=== PATIENT | female | born 2000 | race Caucasian/White ===

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

== ENCOUNTER 2022-04-30 10:55 | Emergency (ER) | payer MEDICAID ==
[~2022-04-30] VITALS: Ht 157.5 cm; Wt 88.9 kg
[2022-04-30] MEDS ORDERED: METH750T22 PO (11:33)
[2022-04-30] MEDS ORDERED: IBUP800T27 PO (11:33)
[2022-04-30 11:42] VITALS: BP 143/85
[2022-05-01] MEDS ORDERED: IBU600T PO (16:57)
== END 2022-04-30 11:51 | disposition home or self-care (01) ==
LOC: ER 10:55
DX: G56.02 Carpal tunnel syndrome, left upper limb (principal); Z79.1 Long term (current) use of non-steroidal anti-inflammatories (NSAID); Z79.899 Other long term (current) drug therapy
CPT/HCPCS: 29125

== ENCOUNTER 2022-05-01 16:04 | Emergency (ER) | payer MEDICAID ==
[~2022-05-01] VITALS: Ht 157.5 cm; Wt 88.9 kg
[~2022-05-01 16:04] MED LIST: IBUP800T27 PO; METH750T22 PO
[2022-05-01] MEDS ORDERED: IBU600T PO (16:57)
[2022-05-01 18:38] VITALS: BP 112/73
== END 2022-05-01 18:39 | disposition home or self-care (01) ==
LOC: ER 16:04
DX: S66.912A Strain of unspecified muscle, fascia and tendon at wrist and hand level, left hand, initial encounter (principal); G56.02 Carpal tunnel syndrome, left upper limb; Z79.1 Long term (current) use of non-steroidal anti-inflammatories (NSAID); Z79.899 Other long term (current) drug therapy; X58.XXXA Exposure to other specified factors, initial encounter; Y93.89 Activity, other specified; Y92.89 Other specified places as the place of occurrence of the external cause; Y99.8 Other external cause status
CPT/HCPCS: 73110

== ENCOUNTER 2022-05-13 18:30 | Emergency (ER) | payer MEDICAID, OTHER ==
[~2022-05-13] VITALS: Ht 157.5 cm; Wt 89.4 kg
[~2022-05-13 18:30] MED LIST changes: +IBU600T PO
[2022-05-13 19:00] VITALS: BP 112/63
== END 2022-05-13 23:42 | disposition home or self-care (01) ==
LOC: ER 18:30
DX: S16.1XXA Strain of muscle, fascia and tendon at neck level, initial encounter (principal); R42 Dizziness and giddiness; V43.52XA Car driver injured in collision with other type car in traffic accident, initial encounter; Y93.89 Activity, other specified; Y92.89 Other specified places as the place of occurrence of the external cause; Y99.8 Other external cause status
CPT/HCPCS: 70450; 71250; 72125; 74176

== ENCOUNTER 2022-05-16 11:41 | Emergency (ER) | payer MEDICAID, OTHER ==
[~2022-05-16] VITALS: Ht 157.5 cm; Wt 89.4 kg
[2022-05-16] MEDS ORDERED: HYDROcodone-ACET 5/325MG TAB PO ONE (12:15)
[2022-05-16] MEDS ORDERED: diphenhdrAMINE HCL 50 MG/1 ML VL IV ONE (14:00)
[2022-05-16] MEDS ORDERED: LACTATED RINGER'S 1,000 ML IV ONE (14:00)
[2022-05-16] MEDS ORDERED: MAGNESIUM SULFATE 1GM/100ML 100 ML IV ONE (14:00)
[2022-05-16] MEDS ORDERED: KETOROLAC TROMETH 30 MG/ML 1ML VIAL IV ONE (14:00)
[2022-05-16] MEDS ORDERED: DexAMETHasone SOD PHOS 10MG/1ML VIAL INJ IV ONE (14:00)
[2022-05-16 14:50] VITALS: BP 145/79
== END 2022-05-16 15:00 | disposition home or self-care (01) ==
LOC: ER 11:41
DX: F07.81 Postconcussional syndrome (principal); Z79.1 Long term (current) use of non-steroidal anti-inflammatories (NSAID); Z79.899 Other long term (current) drug therapy
CPT/HCPCS: 81025; 93005; 96374; 99284; J1100; J1200; J1885

== ENCOUNTER 2022-05-21 15:20 | Emergency (ER) | payer MEDICAID, OTHER ==
[~2022-05-21] VITALS: Ht 157.5 cm; Wt 88.0 kg
[2022-05-21] MEDS ORDERED: MECL25CH38 PO (15:44)
[2022-05-21] MEDS ORDERED: KETOROLAC TROMETH 60MG/2ML VIAL IM ONE (15:45)
[2022-05-21] MEDS ORDERED: AMOX500T86 PO (16:31)
[2022-05-21 17:06] VITALS: BP 146/80
== END 2022-05-21 17:00 | disposition home or self-care (01) ==
LOC: ER 15:20
DX: R51.9 Headache, unspecified (principal); R42 Dizziness and giddiness; J32.9 Chronic sinusitis, unspecified; Z79.2 Long term (current) use of antibiotics; Z79.1 Long term (current) use of non-steroidal anti-inflammatories (NSAID); Z79.899 Other long term (current) drug therapy
CPT/HCPCS: 70450; 82962; 96372; 99284; J1885

== ENCOUNTER 2022-09-03 17:05 | Emergency (ER) | payer MEDICAID, OTHER ==
[~2022-09-03] VITALS: Ht 157.5 cm; Wt 84.7 kg
[~2022-09-03 17:05] MED LIST changes: +AMOX500T86 PO; +MECL25CH38 PO
[2022-09-03] MEDS ORDERED: ALBUTEROL SULF 2.5 MG/0.5ML(0.5%) NEB SOLN NEB ONE (20:45)
[2022-09-03] MEDS ORDERED: IPRATROPIUM BROM 0.5 MG/2.5ML INH SOL NEB ONE (20:45)
[2022-09-03 21:01] VITALS: BP 92/65
[2022-09-03] MEDS ORDERED: ALBUAER3 IN (22:32)
[2022-09-03] MEDS ORDERED: PRED20TA2 PO (22:32)
== END 2022-09-03 22:45 | disposition home or self-care (01) ==
LOC: ER 17:05
DX: J06.9 Acute upper respiratory infection, unspecified (principal); Z20.822 Contact with and (suspected) exposure to COVID-19
CPT/HCPCS: 36415; 71045; 87426; 87804; 94640; 99284; J7644

== ENCOUNTER 2022-11-16 11:28 | Emergency (ER) | payer MEDICAID ==
[~2022-11-16] VITALS: Ht 157.5 cm; Wt 86.0 kg
[~2022-11-16 11:28] MED LIST changes: +ALBUAER3 IN; +PRED20TA2 PO
[2022-11-16 13:17] VITALS: BP 116/83
[2022-11-16 14:17] LABS: Urine Bacteria MOD /hpf (None Seen); Urine Blood Negative /uL (Negative); Urine Specific Gravity 1.021 (1.001-1.035); Urine WBC 103 /hpf (0 - 5)
[2022-11-16] MEDS ORDERED: ACETAMINOPHEN 500 MG TAB PO ONE (14:30)
[2022-11-16] MEDS ORDERED: IBUP800T26 PO (14:49)
[2022-11-16] MEDS ORDERED: LEVO500T31 PO (14:49)
[2022-11-19] MEDS ORDERED: NITR-87 PO (17:36)
== END 2022-11-16 14:58 | disposition home or self-care (01) ==
LOC: ER 11:28
DX: N12 Tubulo-interstitial nephritis, not specified as acute or chronic (principal); Z79.899 Other long term (current) drug therapy
CPT/HCPCS: 81001

== ENCOUNTER 2022-12-29 13:02 | Emergency (ER) | payer MEDICAID ==
[~2022-12-29] VITALS: Ht 157.5 cm; Wt 86.8 kg
[2022-12-29 13:02] VITALS: BP 145/95
[~2022-12-29 13:02] MED LIST changes: +IBUP800T26 PO; +LEVO500T31 PO; +NITR-87 PO
[2022-12-29 13:39] LABS: Basophils # (auto) 0 10 ^3/uL (0-0.2); Basophils % (auto) 0.2 % (0.0-2.0); Eosinophils # (auto) 0 10 ^3/uL (0-0.8); Eosinophils % (auto) 0.4 % (0.0-7.0); Hematocrit 45.4 % (36.0-46.0); Hemoglobin 15.3 g/dL (12.2-16.2); Lymphocytes # (auto) 1.1 10 ^3/uL (0.4-5.4); Lymphocytes % (auto) 12.4 % (10.0-50.0); Mean Corpuscular Hemoglobin 30.4 pg (28.0-32.0); Mean Corpuscular Hgb Conc. 33.7 g/dL (32.0-36.0); Mean Corpuscular Volume 90.2 fL (80.0-100.0); Monocytes % (auto) 10.5 % (0.0-12.0); Neutrophils % (auto) 76.5 % (37.0-80.0); Nucleated Red Blood Cells % 0.1 %; Red Blood Cells 5.03 10^6/uL (4.0-5.20); White Blood Cell 9.2 10^3/uL (4.4-10.8)
[2022-12-29 14:22] LABS: BUN/Creatinine Ratio 12.4; Potassium 4.5 mmol/L (3.5-5.1)
[2022-12-29 14:23] LABS: Albumin 3.6 g/dL (3.4-5.0); Bilirubin, Total 0.6 mg/dL (0.2-1.0)
[2022-12-29 14:25] LABS: Calcium 8.8 mg/dL (8.5-10.1)
[2022-12-29 14:26] LABS: Total Protein 7.4 g/dL (6.4-8.2)
[2022-12-29] MEDS ORDERED: PENICILLIN G BENZ 1200000 UNITS/2 ML SYRG IM ONE (15:45)
== END 2022-12-29 17:13 | disposition home or self-care (01) ==
LOC: ER 13:02
DX: J02.0 Streptococcal pharyngitis (principal); R07.89 Other chest pain; R11.2 Nausea with vomiting, unspecified; R10.9 Unspecified abdominal pain; Z79.1 Long term (current) use of non-steroidal anti-inflammatories (NSAID); Z79.2 Long term (current) use of antibiotics; Z79.899 Other long term (current) drug therapy
CPT/HCPCS: 36415; 71045; 80053; 84484; 85025; 85379; 96372; 99284; J0561

== ENCOUNTER 2023-06-02 10:33 | Emergency (ER) | payer MEDICAID, OTHER ==
[~2023-06-02] VITALS: Ht 160 cm; Wt 89.6 kg
[~2023-06-02 10:33] MED LIST changes: +IBUP-1455 PO; +IBUP-1456 PO; -IBUP800T26 PO; -IBUP800T27 PO; +METH-1182 PO; -METH750T22 PO
[2023-06-02 12:14] VITALS: BP 137/88
[2023-06-02 13:05] LABS: Urine Bacteria FEW /hpf (None Seen); Urine Blood Negative /uL (Negative); Urine Mucus FEW (None Seen); Urine Specific Gravity 1.028 (1.001-1.035); Urine WBC 7 /hpf (0 - 5)
[2023-06-02] MEDS ORDERED: IBUP1TAB5 PO (13:56)
[2023-06-02] MEDS ORDERED: KETOROLAC TROMETH 30 MG/ML 1ML VIAL IM ONE (14:00)
== END 2023-06-02 14:18 | disposition home or self-care (01) ==
LOC: ER 10:33
DX: S30.0XXA Contusion of lower back and pelvis, initial encounter (principal); S20.212A Contusion of left front wall of thorax, initial encounter; M25.512 Pain in left shoulder; X58.XXXA Exposure to other specified factors, initial encounter; Y93.89 Activity, other specified; Y92.89 Other specified places as the place of occurrence of the external cause; Y99.8 Other external cause status
CPT/HCPCS: 71101; 72070; 72100; 73030; 81001; 81025; 96372; 99284; J1885

== ENCOUNTER 2025-10-28 14:33 | Emergency (ER) | payer OTHER ==
[~2025-10-28] VITALS: Ht 157.5 cm; Wt 105.4 kg
[~2025-10-28 14:33] MED LIST changes: +IBUP1TAB5 PO
--- NOTE | 2025-10-28 16:50 | ED.PDOC ---
Musculoskeletal HPI Comments This is a 25 year old female presenting to the ED with chief complaint of left ankle pain. Patient reports that while at a parade marching yesterday, she had accidentally tripped on a pinecone and fell, rolling her left ankle. Patient relays that she is now unable to bear weight on her left foot due to the pain and there is increased swelling to the left ankle. Patient denies any numbness, weakness, tingling, or further injury. Chief Complaint: Lower Extremity Time Seen by MD: 16:50 Primary Care Provider: AUDELIA Reviewed Notes: Nurses Notes, Medications, Allergies Allergies: Coded Allergies: NO KNOWN ALLERGIES (Unverified , 10/25/13) Home Meds Active Scripts Ibuprofen Micronized (Ibuprofen) 600 Mg Tab, 600 MG PO Q8HPRN PRN, #30 TAB 0 Refills Prov:SUKUMAR OGDEN [employer] 06/02/23 Nitrofurantoin Monohydrate Mac (Macrobid) 100 Mg Cap, 100 MG PO BID for 5 Days, #10 CAP Prov:MARION AMAYA MD 11/19/22 Ibuprofen Micronized (Ibuprofen) 800 Mg Tab, 800 MG PO TID, #20 TAB Prov:TEDDY CHEUNG PAC 11/16/22 Levofloxacin (Levaquin) 500 Mg Tab, 500 MG PO DAILY for 10 Days, #10 TAB Prov:TEDDY CHEUNG PAC 11/16/22 Albuterol Sulfate (VENTOLIN MDI) 90 Mcg Ih, 90 MCG IN PRN PRN, #1 INH 0 Refills 2 to 4 inhalations every 20 minutes for 3 doses Prov:LAINEY MEJIA 09/03/22 Prednisone (Prednisone) 20 Mg Tab, 20 MG PO BID for 5 Days, #10 TAB 0 Refills Prov:LAINEY MEJIA 09/03/22 Amoxicillin & Pot Clavulanate (Augmentin) 500 Mg Tab, 1 TAB PO BID for 10 Days, #20 TAB Prov:MARION AMAYA MD 05/21/22 Meclizine HCl (Meclizine) 25 Mg Chw, 25 MG PO DAILY for 5 Days, #5 CHW Prov:MARION AMAYA MD 05/21/22 Ibuprofen Micronized (MOTRIN TABLET) 600 Mg Tb, 600 MG PO TID PRN for 5 Days, #15 TAB *Black box warning-NSAIDS can increase risk of NC & hypertension, GI irritation, ulceration, bleed, perferation. Do not use post cardiac surgery. Use short duration/lowest effective dose. Prov:MARION AMAYA MD 05/01/22 Methocarbamol (Methocarbamol) 750 Mg Tab, 750 MG PO QHSP PRN, #20 TAB Prov:IRIS KINGHT 04/30/22 Ibuprofen (Ibuprofen) 800 Mg Tab, 800 MG PO TID PRN, #30 TAB Prov:IRIS KNIGHT 04/30/22 Information Source: Patient Mode of Arrival: Ambulatory Location: Left Extremity Location: Ankle Timing: Hours Prehospital treatment: None Severity: Moderate Able to Move Extremity: No Bear Weight: No Pain: Moderate Mechanism: Twisting Circumstances: Fall Onset of Symptoms: After Trauma Symptoms: Swelling, Pain DVT Risk Factors: NONE Associated signs and symptoms: Ankle pain Past Medical History PAST MEDICAL HISTORY: Denies Surgical History: Denies all surgeries 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 Family History Family History: Reviewed,noncontributory to illness Social History Smoker: Non-Smoker Alcohol: Denies ETOH Use Drugs: Denies Drug Use Lives In: Home Constitutional: denies: chills, diaphoresis, fatigue, fever, malaise, sweats, weakness, others EENTM: denies: blurred vision, double vision, ear bleeding, ear discharge, ear drainage, ear pain, ear ringing, eye pain, eye redness, hearing loss, mouth pain, mouth swelling, nasal discharge, nose bleeding, nose congestion, nose pain, photophobia, tearing, throat pain, throat swelling, voice changes, others Respiratory: denies: cough, hemoptysis, orthopnea, SOB at rest, shortness of breath, SOB with excertion, stridor, wheezing, others Cardiovascular: denies: chest pain, dizzy spells, diaphoresis, Dyspnea on exertion, edema, irregular heart beat, left arm pain, lightheadedness, palpitations, PND, syncope, others Gastrointestinal: denies: abdomen distended, abdominal pain, blood streaked bowels, constipated, diarrhea, dysphagia, difficulty swallowing, hematemesis, melena, nausea, poor appetite, poor fluid intake, rectal bleeding, rectal pain, vomiting, others Genitourinary: denies: abnormal vagina bleeding, burning, dyspareunia, dysuria, flank pain, frequency, hematuria, incontinence, pain, , vagina discharge, urgency, others Neurological: denies: dizziness, fainting, headache, left sided numbness, left sided weakness, numbness, paresthesia, pre-existing deficit, right sided numbness, right sided weakness, seizure, speech problems, tingling, tremors, weakness, others Musculoskeletal: reports: others (Left ankle pain); denies: back pain, gout, joint pain, joint swelling, muscle pain, muscle stiffness, neck pain Integumetry: denies: bruises, change in color, change in hair/nails, dryness, laceration, lesions, lumps, rash, wounds, others Allergic/Immunocompromised: denies: Difficulty Healing, Frequent Infections, Hives, Itching, others Hematologic/Lymphatic: denies: anemia, blood clots, easy bleeding, easy bruising, swollen glands, others Endocrine: denies: excessive hunger, excessive sweating, excessive thirst, excessive urination, flushing, intolerance to cold, intolerance to heat, unexplained weight gain, unexplained weight loss, others Psychiatric: denies: anxiety, bipolar disorder, depression, hopeless, panic disorder, schizophrenia, sleepless, suicidal, others All Other Systems: Reviewed and Negative Physical Exam General Appearance: No Apparent Distress, Normal HEENT: Normal ENT Inspection, Pharynx Normal, TMs Normal Neck: Full Range of Motion, Non-Tender, Normal, Normal Inspection Respiratory: Chest Non-Tender, Lungs Clear, No Accessory Muscle Use, No Respiratory Distress, Normal Breath Sounds Cardiovascular: No Edema, No JVD, No Murmur, No Gallop, Normal Peripheral Pulses, Regular Rate/Rhythm Breast Exam: Deferred Gastrointestinal: No Organomegaly, Non Tender, No Pulsatile Mass, Normal Bowel Sounds, Soft Genitalia: Deferred Pelvic: Deferred Rectal: Deferred Extremities: No calf tenderness, Normal capillary refill, Normal inspection, Normal range of motion, Non-tender, No pedal edema Musculoskeletal : Location: Left Extremity Location: Ankle Apperance: Tenderness Neurologic: Alert, internist II-XII nml as Tested, No Motor Deficits, Normal Affect, Normal Mood, No Sensory Deficits Cerebellar Function: Normal Reflexes: Normal Skin: Dry, Normal Color, Warm Lymphatic: No Adenopathy Was a procedure done? Was a procedure done?: No Differential Diagnosis EXT Differential Diagnosis: Fracture, Sprain, Dislocation, Contusion, Strain X-Ray, Labs, Meds, VS Vital Signs Date Time Temp Pulse Resp B/P (MAP) Pulse Ox O2 Delivery O2 Flow Rate FiO2 10/28/25 18:01 78 18 114/63 (80) 97 10/28/25 14:34 97.3 91 15 152/93 99 97.3 [place] [id number] Ph: [phone] DIAGNOSTIC IMAGING Diagnostic Imaging Report : [id number] Signed PATIENT: HANSA UBSTOS ACCT: [id number] UNIT: [id number] : 2000 LOC: ER ROOM / BED: / AGE / SEX: 25 / F ADM STATUS: REG ER SERVICE [id number] ORDERING PHYSICIAN: ARLETTE BROOKS MD PROCEDURE(s): LANKL - L ANKLE 3 VIEW REASON: fall ORDER NUMBER(s): [id number], ACCESSION NUMBER(s): [id number] EXAM: XY L ANKLE 3 VIEW INDICATION: fall TECHNIQUE: 3 views of the left ankle COMPARISON: None FINDINGS/IMPRESSION: No radiographic evidence of an acute osseous abnormality. There is no acute fracture, osseous malalignment, or aggressive focal osseous lesion. ATED BY: LEONIDAS LIMON MD DICTATED DATE/TIME: 10/28/251711 SIGNED BY: LEONIDAS LIMON MD SIGNED DATE/TIME: 10/28/251711 CC: Images Reviewed?: Images reviewed and evaluated by me Time of 1ST Reevaluation: 17:49 Reevaluation 1ST: Improved Patient Education/Counseling: Diagnosis, Treatment Family Education/Counseling: No Family Present Departure 1 Departure Time of Disposition: 18:24 (Patient likely with a ankle sprain. We will discharge the patient home) Impression: Primary Impression: Right ankle sprain Disposition: 01 HOME / SELF CARE / HOMELESS Condition: Stable Referrals: ISAIAS FORDE MD Additional Instructions: You sprained your ankle. Fortunately it is not broken on X-ray today. A sprain can hurt as much as a brake but heals much faster. You can ice your ankle as needed for pain. You can ashley wrap your ankle as needed for pain. You can use crutches as needed. For pain you can take: 8am: Ibuprofen 400mg with food Noon: Tylenol 1000mg 4pm: Ibprofen 400mg with food 8pm: Tylenol 1000mg You were referred to our orthopedic surgeon to ensure you are healing well. Please call for an appointment within one week. If your symptoms worsen or you have any other concerns then please return to the ER. Discharged With: Self Critical Care Note Critical Care Time?: No Stability Stability form required: No Heart Score Heart Score: Heart Score Response (Comments) Value History N/A 0 EKG N/A 0 Age N/A 0 Risk Factors N/A 0 Troponin N/A 0 Total 0 I personally scribed for ARLETTE BROOKS MD ([email or web address]) on 10/28/25 at 16:50. Electronically submitted by Jc Yu ([email or web address]). I personally scribed for ARLETTE BROOKS MD ([email or web address]) on 10/28/25 at 17:58. Electronically submitted by Jc Yu ([email or web address]). ARLETTE BROOKS MD Oct 28, 2025 16:50
--- NOTE | 2025-10-28 17:14 | DVH ---
EXAM: XY L ANKLE 3 VIEW INDICATION: fall TECHNIQUE: 3 views of the left ankle COMPARISON: None FINDINGS/IMPRESSION: No radiographic evidence of an acute osseous abnormality. There is no acute fracture, osseous malalignment, or aggressive focal osseous lesion.
[2025-10-28 19:12] VITALS: BP 135/87; PULSE 80; RESP 17; TEMP 98.3; O2SAT 98
== END 2025-10-28 19:14 | disposition home or self-care (01) ==
LOC: ER 14:33
DX: S93.401A Sprain of unspecified ligament of right ankle, initial encounter (principal); W01.0XXA Fall on same level from slipping, tripping and stumbling without subsequent striking against object, initial encounter; Y93.89 Activity, other specified; Y92.89 Other specified places as the place of occurrence of the external cause; Y99.8 Other external cause status
CPT/HCPCS: 73610